=== PATIENT | female | born 1950 | race African-American/Black ===

== ENCOUNTER 2021-08-16 12:07 | Inpatient (IN) | payer MEDICARE, OTHER ==
[~2021-08-16] VITALS: Ht 172.7 cm; Wt 72.6 kg
--- NOTE | 2021-08-16 12:22 | NUR ---
pt bibra c/o poor appetite and not eating well for x days. pt connected to monitor vss.
[2021-08-16] MEDS ORDERED: IV NS 0.9% 500 ML BAG IV ONE ×2 (12:30→13:30)
[2021-08-16 12:53] LABS: BASOPHILS % (AUTO) 0.4 % (0.0-2.0); HEMATOCRIT 36 % (33-45); HEMOGLOBIN 12.3 g/dL (11.5-14.8); LYMPHOCYTES # (AUTO) 2.3 K/uL (0.8-4.8); LYMPHOCYTES % (AUTO) 22.3 % (20.0-44.0); MEAN CORPUSCULAR HGB CONC 34 g/dl (31.0-36.0); MEAN CORPUSCULAR VOLUME 86 fL (82-100); MONOCYTES # (AUTO) 1.1 K/uL (0.1-1.30); MONOCYTES % (AUTO) 10.6 % (2.0-12.0); NEUTROPHILS # (AUTO) 6.6 K/uL (1.8-8.9); NEUTROPHILS % (AUTO) 63.7 % (43.0-81.0); PLATELET COUNT (AUTO) 367 K/uL (150-450); RED BLOOD CELL COUNT(AUTO) 4.24 MIL/uL (4.0-5.2); WHITE BLOOD COUNT (AUTO) 10.3 K/uL (4.3-11.0)
--- NOTE | 2021-08-16 13:00 | NUR ---
MOVE SHEET SUBMITTED.
[2021-08-16 13:14] LABS: CALCIUM, SERUM 9.3 mg/dL (8.5-10.1); CARBON DIOXIDE 25 mmol/L (21-32); CHLORIDE 102 mmol/L (98-107); CREATININE 0.8 mg/dL (0.6-1.3); GLUCOSE 215 mg/dL (74-106); POTASSIUM 3.8 mmol/L (3.5-5.1); SODIUM SERUM 136 mmol/L (136-145); UREA NITROGEN, BLOOD 17 mg/dL (7-18)
[2021-08-16 13:20] LABS: ALANINE AMINOTRANSFERASE 27 U/L (12-78); ALBUMIN 3.2 g/dL (3.4-5.0); ALKALINE PHOSPHATASE 84 U/L (46-116); ASPARTATE AMINOTRANSFERASE 20 U/L (15-37); BILIRUBIN,DIRECT 0.1 mg/dL (0.0-0.2); BILIRUBIN,TOTAL 0.6 mg/dL (0.2-1.0); LIPASE 52 U/L (73-393); TOTAL PROTEIN, SERUM 7.9 g/dL (6.4-8.2)
--- NOTE | 2021-08-16 13:33 | NUR ---
CALLED [facility] FOR PT PRESENTATION. CATALYST IMPREGNATOR SAID THEY WILL HAVE THE ADMITTING DOCTOR TO CALL BACK. AWAITING CALL BACK.
[2021-08-16 13:56] LABS: BILIRUBIN,URINE NEGATIVE (NEGATIVE); COLOR,URINE YELLOW (YELLOW); LEUKOCYTE ESTERASE ,URINE SMALL (NEGATIVE); NITRITE, URINE NEGATIVE (NEGATIVE); PROTEIN,URINE 100 mg/dl (NEGATIVE); UGLUCOSE NEGATIVE (NEGATIVE); UROBILINOGEN,URINE 0.2 EU/dL (0.2)
[2021-08-16 14:15] LABS: BACTERIA,URINE Many /HPF (None Seen); RBC,URINE 0-2 /HPF (0-2)
[2021-08-16] MEDS ORDERED: DOCU-141 PO (14:18)
[2021-08-16] MEDS ORDERED: SENN8.6T19 PO (14:18)
[2021-08-16] MEDS ORDERED: AMLO-213 PO (14:18)
[2021-08-16] MEDS ORDERED: INSU100V3 IJ (14:18)
[2021-08-16] MEDS ORDERED: MULT-447 PO (14:18)
[2021-08-16] MEDS ORDERED: INSU100I26 SQ (14:18)
[2021-08-16] MEDS ORDERED: ATOR10TA PO (14:18)
[2021-08-16] MEDS ORDERED: PANT40TA49 PO (14:18)
[2021-08-16] MEDS ORDERED: CLON0.2T PO (14:18)
[2021-08-16] MEDS ORDERED: FERR325T23 PO (14:18)
[2021-08-16] MEDS ORDERED: HYDR100T27 PO (14:18)
[2021-08-16] MEDS ORDERED: POLY17PO4 PO (14:18)
--- NOTE | 2021-08-16 15:00 | NUR ---
311-[address] [facility]
--- NOTE | 2021-08-16 15:09 | NUR ---
report given to kp (rn).
--- NOTE | 2021-08-16 15:21 | NUR ---
pt transferred to 3 w per [facility] protocol.
[2021-08-16] MEDS ORDERED: MORPHINE SULFATE INJ 2 MG/ML DISP.SYRIN IV PRN (17:30)
[2021-08-16] MEDS ORDERED: ACETAMINOPHEN 325 MG TABLET PO PRN (17:30)
[2021-08-16] MEDS ORDERED: Z GUARD REMEDY 4 OZ OINT TP PRN (17:30)
[2021-08-16] MEDS ORDERED: DEXTROSE 50%-WATER 50 ML DISP.SYRIN IV PRN (17:30)
[2021-08-16] MEDS ORDERED: IV 1/2NS 1000 ML 1,000 ML IV PRN (17:30)
[2021-08-16] MEDS ORDERED: hydrALAZINE HCL IV 20 MG VIAL IV PRN (17:30)
[2021-08-16] MEDS ORDERED: ONDANSETRON HCL/PF 4 MG/2 ML VIAL IVP PRN (17:30)
[2021-08-16] MEDS ORDERED: MAG HYDROX/AL HYDROX/SIMETH 30 ML UDC PO PRN (17:30)
[2021-08-16] MEDS: BLOOD SUGAR DIAGNOSTIC 1 EACH STRIP VI SCH ×2 (17:52→22:29)
[2021-08-16] MEDS: ENOXAPARIN SODIUM 40 MG/0.4 ML DISP.SYRIN SQ SCH (17:54)
[2021-08-16] MEDS: INSULIN REGULAR, HUMAN 100 UNIT/ML 3 ML VIAL SQ PRN (18:00)
--- NOTE | 2021-08-16 19:39 | NUR ---
END OF SHIFT REPORT Received patient via [employer] at 1545. Patient is alert but with expressive aphasia noted, able to communicate needs by pointing and through action. Stable on room air, breathing evenly and unlabored. No SOB or s/s of distress noted. IV access on LAC #20, 1/2 NS hooked and running at 65ml/hr. Godoy catheter in place draining to a yellow colored urine. Patient oriented to room and how to use the call light. Patient made comfortable. Photos of multiple wound taken and placed in chart. Lung clear. Bowel sounds present x 4. Safety precautions in place: bed in low, locked position; siderails up x 2; call light within reach. will endorse to night monitor nurse for [facility].
[2021-08-16 20:00] VITALS: BP 158/69
--- NOTE | 2021-08-16 20:00 | NUR ---
RECEIVED PATIENT IN BED, ALERT AND ORIENTED X2-3, ROOM AIR, EXPRESSIVE APHASIA, FOLLOWS COMMAND, RIGHT SIDED HEMIPARESIS, NOT IN APPARENT PAIN, WILLIAMSON CATHETER DRAINING WELL, HEELS OFFLOADED, WILL CONTINUE TO MONITOR.
[2021-08-16 22:00] VITALS: BP 148/86
[2021-08-16] MEDS: INSULIN GLARGINE,BASAGLAR 100 UNIT/ML INSULN.PEN SQ SCH (22:00)
[2021-08-16] MEDS ORDERED: MAGNESIUM HYDROXIDE 30 ML UDC PO PRN (22:00)
[2021-08-16] MEDS: *INSULIN REGULAR(HUMULIN R)HUM 100 UNIT/ML VIAL SQ PRN (22:14)
[2021-08-16] MEDS: INSULIN GLARGINE, 100 UNIT/ML CARTRIDGE SQ SCH (22:21)
--- NOTE | 2021-08-16 22:29 | NUR ---
Basaglar 20 units not given, on Lantus 20 units also.
[2021-08-16] MEDS: ATORVASTATIN 10 MG TABLET PO SCH (22:36)
[2021-08-16] MEDS: SENNOSIDES 8.6 MG TABLET PO SCH (22:36)
[2021-08-16] MEDS: hydrALAZINE HCL 50 MG TABLET PO SCH (22:36)
[2021-08-16] MEDS: CLONIDINE HCL 0.1 MG TABLET PO SCH (22:36)
[2021-08-17] MEDS: hydrALAZINE HCL 50 MG TABLET PO SCH ×3 (05:17→21:11)
[2021-08-17] MEDS: CLONIDINE HCL 0.1 MG TABLET PO SCH ×3 (05:17→21:11)
[2021-08-17] MEDS: INSULIN REGULAR, HUMAN 100 UNIT/ML 3 ML VIAL SQ PRN ×3 (06:32→17:50)
[2021-08-17 06:38] LABS: BASOPHILS % (AUTO) 0.5 % (0.0-2.0); EOSINOPHILS % (AUTO) 3.3 % (0.0-6.0); HEMATOCRIT 33 % (33-45); HEMOGLOBIN 11.3 g/dL (11.5-14.8); LYMPHOCYTES # (AUTO) 2.1 K/uL (0.8-4.8); LYMPHOCYTES % (AUTO) 23.5 % (20.0-44.0); MEAN CORPUSCULAR HGB CONC 34 g/dl (31.0-36.0); MEAN CORPUSCULAR VOLUME 86 fL (82-100); MONOCYTES # (AUTO) 1.3 K/uL (0.1-1.30); MONOCYTES % (AUTO) 14.1 % (2.0-12.0); NEUTROPHILS # (AUTO) 5.3 K/uL (1.8-8.9); NEUTROPHILS % (AUTO) 58.6 % (43.0-81.0); PLATELET COUNT (AUTO) 367 K/uL (150-450); RED BLOOD CELL COUNT(AUTO) 3.85 MIL/uL (4.0-5.2); WHITE BLOOD COUNT (AUTO) 9.1 K/uL (4.3-11.0)
[2021-08-17] MEDS: BLOOD SUGAR DIAGNOSTIC 1 EACH STRIP VI SCH ×4 (06:47→21:29)
--- NOTE | 2021-08-17 06:51 | NUR ---
ALERT/ORIENTED X2-3, APHASIAC, ABLE TO FOLLOW COMMANDS, STABLE ON ROOM AIR, NO COMPLAIN OF PAIN, IRRITABLE AT TIMES, ABLE TO SWALLOW MEDICATIONS WHOLE, GIVEN ONE AT A TIME, RIGHT SIDED WEAKNESS, SOLVING CROSSWORD, WILLIAMSON CATHETER DRAINING WELL, CONTINUE IVF, BLOOD SUGAR CONTROL, BP CONTROL, ON CLONIDINE AND HYDRALAZINE, URINE CULTURE PENDING. FALL PRECAUTION,
[2021-08-17 07:38] LABS: ALBUMIN 2.9 g/dL (3.4-5.0); BILIRUBIN,TOTAL 0.6 mg/dL (0.2-1.0); MAGNESIUM 1.9 mg/dL (1.8-2.4); POTASSIUM 3.9 mmol/L (3.5-5.1)
--- NOTE | 2021-08-17 07:49 | NUR ---
MS RN OPENING NOTE Patient in bed, asleep. Patient is alert but with expressive aphasia. On room air, breathing evenly and unlabored. No SOB or s/s of distress noted. IV access on LAC #20 running 1/2 NS at 65 ml/hr. Godoy catheter in place draining to a yellow colored urine. Safety precautions in place: bed in low, locked position; siderails up x 2; call light within reach. Will continue to monitor.
[2021-08-17 08:40] VITALS: BP 148/61
[2021-08-17 08:41] VITALS: BP_SYST 148; BP_SYST 167; BP_DIAS 78; BP_DIAS 82
[2021-08-17] MEDS ORDERED: CEFTRIAXONE 1 G VIAL IM SCH (09:00)
[2021-08-17] MEDS ORDERED: Medication Not On Formulary EA (Multivitamin With Minerals (One Daily Complete) 1 EACH) PO SCH (09:00)
[2021-08-17] MEDS: PANTOPRAZOLE 40 MG TABLET.DR PO SCH (09:34)
[2021-08-17] MEDS: MULTIVITAMINS,THERAGRAN 1 UDTAB TABLET PO SCH (09:34)
[2021-08-17] MEDS: DOCUSATE SODIUM 100 MG CAPSULE PO SCH (09:34)
[2021-08-17] MEDS: FERROUS SULFATE (325 MG) 325 MG/TAB TABLET PO SCH (09:34)
[2021-08-17] MEDS: POLYETHYLENE GLYCOL 3350 17 GM POWD.PACK PO SCH (09:34)
[2021-08-17] MEDS: AMLODIPINE BESYLATE 10 MG TABLET PO SCH (09:34)
[2021-08-17] MEDS: CEFTRIAXONE 1 G in IV D5W 50 ML IV SCH (09:35)
[2021-08-17 09:48] LABS: CREATININE 0.8 mg/dL (0.6-1.3); TOTAL PROTEIN, SERUM 7.3 g/dL (6.4-8.2)
[2021-08-17 16:39] VITALS: BP 139/70
[2021-08-17] MEDS: ENOXAPARIN SODIUM 40 MG/0.4 ML DISP.SYRIN SQ SCH (17:38)
--- NOTE | 2021-08-17 19:22 | NUR ---
MS RN CLOSING NOTE Patient in bed, awake. Patient is alert but with expressive aphasia, able to make needs known by pointing and actions. Stable on room air, breathing evenly and unlabored. No SOB or s/s of distress noted. IV access on LAC #20 SL, intact and patent. Godoy catheter in place draining to a yellow colored urine with an output of 750 cc. Due meds given. All needs attended to. Safety precautions maintained: bed in low, locked position; siderails up x 2; call light within reach. Will endorse to professor of geography nurse for [facility].
[2021-08-17 20:00] VITALS: BP 138/78
[2021-08-17] MEDS: ATORVASTATIN 10 MG TABLET PO SCH (21:12)
[2021-08-17] MEDS: SENNOSIDES 8.6 MG TABLET PO SCH (21:12)
[2021-08-17] MEDS: INSULIN GLARGINE, 100 UNIT/ML CARTRIDGE SQ SCH (21:32)
[2021-08-17] MEDS: *INSULIN REGULAR(HUMULIN R)HUM 100 UNIT/ML VIAL SQ PRN (21:37)
[2021-08-17] MEDS: INSULIN GLARGINE,BASAGLAR 100 UNIT/ML INSULN.PEN SQ SCH (21:37)
[2021-08-18] MEDS: CLONIDINE HCL 0.1 MG TABLET PO SCH ×3 (05:47→21:18)
[2021-08-18] MEDS: hydrALAZINE HCL 50 MG TABLET PO SCH ×3 (05:47→21:18)
[2021-08-18] MEDS: BLOOD SUGAR DIAGNOSTIC 1 EACH STRIP VI SCH ×4 (06:50→22:16)
[2021-08-18] MEDS: INSULIN REGULAR, HUMAN 100 UNIT/ML 3 ML VIAL SQ PRN ×4 (06:56→22:08)
--- NOTE | 2021-08-18 07:08 | NUR ---
MS RN CLOSING NOTE PATIENT AWAKE IN BED, PATIENT ALERT/ORIENTED X 2 WITH EXPRESSIVE APHASIA. PATIENT STABLE ON RA, NO S/S OF DISTRESS OR SOB NOTED, BREATHING EVEN AND UNLABORED. IV ACCESS ON LEFT AC #20G INTACT AND SALINE LOCKED. WILLIAMSON CATH IN PLACE AND DRAINING YELLOW URINE. NO SIGNIFICANT CHANGES THROUGHOUT SHIFT. MEDICATIONS GIVEN ORDERED, PT NEEDS MET THROUGHOUT SHIFT. SAFETY MEASURES IN PLACE: CALL LIGHT WITHIN REACH, SIDE RAILS UP X 2, BED LOCKED IN LOWEST POSITION, HOB ELEVATED, BED ALARM ON. WILL ENDORSE TO DAY SHIFT NURSE FOR CONTINUITY OF CARE
--- NOTE | 2021-08-18 07:30 | NUR ---
PT RECEIVED RESTING COMFORTABLY IN BED. NO S/S OR C/O PAIN OR DISTRESS NOTED. SIDE RAILS UP X2, CALL LIGHT LEFT WITHIN REACH. WILL CONTINUE PLAN OF CARE.
[2021-08-18 08:00] VITALS: BP 144/59
[2021-08-18] MEDS: MULTIVITAMINS,THERAGRAN 1 UDTAB TABLET PO SCH (08:25)
[2021-08-18] MEDS: PANTOPRAZOLE 40 MG TABLET.DR PO SCH (08:25)
[2021-08-18] MEDS: FERROUS SULFATE (325 MG) 325 MG/TAB TABLET PO SCH (08:25)
[2021-08-18] MEDS: CEFTRIAXONE 1 G in IV D5W 50 ML IV SCH (08:25)
[2021-08-18] MEDS: POLYETHYLENE GLYCOL 3350 17 GM POWD.PACK PO SCH (08:25)
[2021-08-18] MEDS: DOCUSATE SODIUM 100 MG CAPSULE PO SCH (08:25)
[2021-08-18] MEDS: AMLODIPINE BESYLATE 10 MG TABLET PO SCH (08:26)
[2021-08-18 16:00] VITALS: BP 139/62
[2021-08-18] MEDS: ENOXAPARIN SODIUM 40 MG/0.4 ML DISP.SYRIN SQ SCH (18:07)
--- NOTE | 2021-08-18 18:29 | NUR ---
CHANGE OF SHIFT REPORT PT RESTING COMFORTABLY IN BED. NO S/S OR C/O PAIN OR DISTRESS NOTED. SIDE RAILS UP X2, CALL LIGHT LEFT WITHIN REACH. PT KEPT CLEAN, DRY, AND COMFORTABLE. NO SIGNIFICANT CHANGES SINCE PREVIOUS SHIFT. WILL GIVE REPORT TO WHITNEY THOMSON.
[2021-08-18 20:00] VITALS: BP 133/62
--- NOTE | 2021-08-18 20:01 | NUR ---
MS RN OPENING NOTE Patient in received in bed awake aox2. On room air, breathing evenly and unlabored. No sign sob/distress noted. IV access on LAC #20 running 1/2 NS at 65 ml/hr. Godoy catheter in place draining to a yellow colored urine no odor noted.Safety precautions in place: bed in low, locked position; siderails up x 2; call light within reach. Will continue to monitor.
[2021-08-18] MEDS: SENNOSIDES 8.6 MG TABLET PO SCH (21:16)
[2021-08-18] MEDS: ATORVASTATIN 10 MG TABLET PO SCH (21:16)
[2021-08-18] MEDS: INSULIN GLARGINE,BASAGLAR 100 UNIT/ML INSULN.PEN SQ SCH (22:00)
[2021-08-18] MEDS: INSULIN GLARGINE, 100 UNIT/ML CARTRIDGE SQ SCH (22:10)
--- NOTE | 2021-08-18 22:19 | NUR ---
RN NOTES BASAGLAR NOT GIVEN BUT LANTUS 20 UNITS WAS ADMINISTERED BS 250
[2021-08-19 00:01] VITALS: BP 133/62
[2021-08-19] MEDS: hydrALAZINE HCL 50 MG TABLET PO SCH ×2 (04:12→12:15)
[2021-08-19] MEDS: CLONIDINE HCL 0.1 MG TABLET PO SCH ×2 (04:12→12:16)
[2021-08-19 06:32] LABS: BASOPHILS % (AUTO) 0.2 % (0.0-2.0); EOSINOPHILS % (AUTO) 2.6 % (0.0-6.0); HEMATOCRIT 32 % (33-45); LYMPHOCYTES # (AUTO) 1.7 K/uL (0.8-4.8); LYMPHOCYTES % (AUTO) 17.1 % (20.0-44.0); MEAN CORPUSCULAR HGB CONC 34 g/dl (31.0-36.0); MEAN CORPUSCULAR VOLUME 86 fL (82-100); MONOCYTES # (AUTO) 1.4 K/uL (0.1-1.30); MONOCYTES % (AUTO) 14.3 % (2.0-12.0); NEUTROPHILS # (AUTO) 6.4 K/uL (1.8-8.9); NEUTROPHILS % (AUTO) 65.8 % (43.0-81.0); PLATELET COUNT (AUTO) 368 K/uL (150-450); RED BLOOD CELL COUNT(AUTO) 3.75 MIL/uL (4.0-5.2); WHITE BLOOD COUNT (AUTO) 9.8 K/uL (4.3-11.0)
[2021-08-19] MEDS: INSULIN REGULAR, HUMAN 100 UNIT/ML 3 ML VIAL SQ PRN ×2 (06:39→11:29)
[2021-08-19] MEDS: BLOOD SUGAR DIAGNOSTIC 1 EACH STRIP VI SCH ×2 (06:43→11:30)
[2021-08-19 06:51] LABS: CALCIUM, SERUM 8.8 mg/dL (8.5-10.1); CREATININE 0.8 mg/dL (0.6-1.3); MAGNESIUM 1.8 mg/dL (1.8-2.4); PHOSPHORUS 3.7 mg/dL (2.5-4.9); POTASSIUM 3.6 mmol/L (3.5-5.1)
--- NOTE | 2021-08-19 06:56 | NUR ---
RN MATEO NOTES. PATIENT IN BED AWAKE AOX2 PERIOD OF CONFUSION.ON RA BRUNA WELL SATING 97%.NO SIGN SOB/DISTRESS NOTED.NO COMPLAINED OF PAIN/DISCOMFORT DURING SHIFT.IV ACCESS ON LAC #20G.ALL NEEDS ATTENDED.CALL LIGHT WITHIN REACH.SAFETY MEASURED INPLACE LOW BED AND LOCKED POSITION.WILL ENDORSED TO NEXT SHIFT.
[2021-08-19] MEDS ORDERED: SULF1TAB48 PO (07:19)
--- NOTE | 2021-08-19 07:43 | NUR ---
RN OPENING NOTES Patient seen comfortably lying in bed, no apparent distress noted, respirations even and unlabored, no shortness of breath, no grimacing, denies any pain or discomfort at this time. Call light left within reach, safety precautions in place, brakes locked, side rails up X 2.
[2021-08-19 08:13] VITALS: BP 119/60
[2021-08-19] MEDS: AMLODIPINE BESYLATE 10 MG TABLET PO SCH (08:28)
[2021-08-19] MEDS: MULTIVITAMINS,THERAGRAN 1 UDTAB TABLET PO SCH (08:28)
[2021-08-19] MEDS: PANTOPRAZOLE 40 MG TABLET.DR PO SCH (08:28)
[2021-08-19] MEDS: CEFTRIAXONE 1 G in IV D5W 50 ML IV SCH (08:28)
[2021-08-19] MEDS: FERROUS SULFATE (325 MG) 325 MG/TAB TABLET PO SCH (08:28)
[2021-08-19] MEDS: DOCUSATE SODIUM 100 MG CAPSULE PO SCH (08:28)
[2021-08-19] MEDS: POLYETHYLENE GLYCOL 3350 17 GM POWD.PACK PO SCH (08:28)
--- NOTE | 2021-08-19 09:53 | NUR ---
WOUND CARE CONSULT: PT PRESENTS WITH SKIN ISSUES INCLUDING DRY ESCHAR/CALLUS TO RT POSTERIOR HEEL, MACERATED SKIN WITH RASH AND SCARRING TO SACRUM, BUTTOCKS AND INNER THIGHS, PRESENT ON ADMISSION. PT NOTED TO HAVE SOME BLEEDING AT PERINEUM. RECOMMENDATIONS MADE FOR SKIN PROTECTION. DISCUSSED WITH NURSING STAFF. MD IN AGREEMENT WITH PLAN OF CARE.
[2021-08-19] MEDS ORDERED: CLOTRIMAZOLE 1% 15 GM TUBE TP SCH (10:00)
[2021-08-19 13:25] VITALS: BP 164/72
--- NOTE | 2021-08-19 19:58 | NUR ---
Patient to be discharged to [facility] and rehab today, spoke to Zelda THOMSON to give report (phone: [phone]), no apparent distress noted, denies any pain or discomfort, able to make needs known, can follow simple commands, no chest pain, no dizziness, no palpitations, no change in level of consciousness, no tremors, no s/s of hypo/hyperglycemia. Abdominal bowel sound present in all quadrants, no grimacing when abdomen palpated, no abdominal distention noted. Patient made aware of the situation, and she signed all discharge paperwork and inventory list, all belongings taken by patient. Health teaching provided, verbalized understanding and gratitude. Skin intact, warm to touch, no pallor or cyanosis noted. Patient was noted to have dry eschar/callus to right posterior heel, macerated skin with rash and scarring to sacrum, buttocks and inner thigh, right knee dry scab, left foot (ball of foot) dryness, but preferred not to have a photo taken during discharge, explained the risks and benefits and purpose of taking pictures still strongly refused thrice, respected patient's wishes. Lewis catheter removed prior to discharge as per MD order, lewis catheter complete, no bleeding noted, no unusual odor, no unusual discharge, no bladder distention, no grimacing when bladder palpated and patient was able to void, no hematuria. Peripheral IV on left antecubital was removed by prior to discharge, complete, site covered with dry dressing, no excessive bleeding noted. Name wristband removed prior to discharge. [facility] felt hanger came to picket [employer] patient. Patient left unit at 1415pm, stable condition, surgical facial mask and exit care folder with paperworks given to [facility] felt hanger.
== END 2021-08-19 14:15 | DRG 641 ==
LOC: ER 12:14 → MED 15:01
PROVIDERS: ADMIT Internal Medicine; ATTEND Family Medicine
DX: R62.7 Adult failure to thrive (principal); N39.0 Urinary tract infection, site not specified; I69.351 Hemiplegia and hemiparesis following cerebral infarction affecting right dominant side; E44.0 Moderate protein-calorie malnutrition; E11.65 Type 2 diabetes mellitus with hyperglycemia; Z68.24 Body mass index [BMI] 24.0-24.9, adult; Z20.822 Contact with and (suspected) exposure to COVID-19; I10 Essential (primary) hypertension; F03.90 Unspecified dementia, unspecified severity, without behavioral disturbance, psychotic disturbance, mood disturbance, and anxiety; K21.9 Gastro-esophageal reflux disease without esophagitis; Z91.013 Allergy to seafood; E88.09 Other disorders of plasma-protein metabolism, not elsewhere classified; J44.9 Chronic obstructive pulmonary disease, unspecified; E78.5 Hyperlipidemia, unspecified; D63.8 Anemia in other chronic diseases classified elsewhere; B96.89 Other specified bacterial agents as the cause of diseases classified elsewhere
CPT/HCPCS: 36415; 71045-TC; 80048-TC; 80053-TC; 80076-TC; 81001; 82962-TC; 83690-TC; 83735-TC; 84100-TC; 84484-TC; 85025-TC; 87081-TC; 87086-TC; 87186-TC; C9803; G0378; J0360; J0696; J1650; J1815; J2270; J3490; J7060